=== PATIENT | female | born 1965 | race Caucasian/White ===

== ENCOUNTER 2017-05-21 19:41 | Inpatient (IN) | payer MEDICAID ==
[~2017-05-21] VITALS: Ht 157.5 cm; Wt 49.8 kg
[2017-05-21] MEDS ORDERED: ALBU8.5H3 INH (20:16)
[2017-05-21] MEDS ORDERED: MORPHINE SULFATE 4 MG/ML, 1ML ONE ×2 (21:14→22:44)
[2017-05-21] MEDS ORDERED: ONDANSETRON 2MG/ML, 2ML ONE (21:14)
[2017-05-21 21:21] LABS: BLOOD UREA NITROGEN 9 mg/dL (7-18)
[2017-05-21] MEDS ORDERED: SODIUM CHLORIDE FLUSH 10ML SYR IVF PRN (22:00)
[2017-05-21] MEDS ORDERED: D5%-0.45% NACL 1,000 ML IV SCH (22:00)
[2017-05-21] MEDS ORDERED: MORPHINE SULFATE 4 MG/ML, 1ML IVPush PRN (22:00)
[2017-05-21] MEDS ORDERED: ONDANSETRON 2MG/ML, 2ML IVPush PRN (22:00)
[2017-05-21 23:00] VITALS: BP 118/76
[2017-05-21] MEDS ORDERED: morphine SULFATE 10 MG/ML, 1ML IVPush ONE (23:00)
[2017-05-22 02:41] VITALS: BP 116/70
[2017-05-22 07:07] VITALS: BP 99/66
[2017-05-22] MEDS ORDERED: HYDROmorphone 1 MG/ML, 1ML ONE (08:51)
[2017-05-22] MEDS ORDERED: KETAMINE 10 MG/ML, 20ML ONE (08:51)
[2017-05-22] MEDS ORDERED: FENTANYL PF 250 MCG/5ML ONE (08:51)
[2017-05-22] MEDS ORDERED: GLYCOPYRROLATE 0.2MG/1ML ONE (09:04)
[2017-05-22] MEDS ORDERED: PROPOFOL 10 MG/ML, 20ML ONE (09:04)
[2017-05-22] MEDS ORDERED: LIDOCAINE 1%, 10ML ONE (09:04)
[2017-05-22] MEDS ORDERED: CEFAZOLIN 1,000 MG ONE (09:04)
[2017-05-22] MEDS ORDERED: DEXAMETHASONE 4 MG/ML, 1ML ONE (09:04)
[2017-05-22] MEDS ORDERED: ROCURONIUM 10 MG/ML ONE (09:04)
[2017-05-22] MEDS ORDERED: ONDANSETRON 2MG/ML, 2ML ONE (09:04)
[2017-05-22] MEDS ORDERED: NEOSTIGMINE 1 MG/ML, 10ML ONE (09:04)
[2017-05-22] MEDS ORDERED: METOCLOPRAMIDE 5 MG/ML, 2ML ONE (09:04)
[2017-05-22] MEDS ORDERED: OXYcodone 5 MG/5 ML ORAL.SOL UDC PO PRN (09:30)
[2017-05-22] MEDS ORDERED: LABETALOL 5MG/ML, 20ML IV PRN (09:30)
[2017-05-22] MEDS ORDERED: ONDANSETRON 2MG/ML, 2ML IVPush PRN (09:30)
[2017-05-22] MEDS ORDERED: hydrALAzine 20 MG/ML, 1ML IV PRN (09:30)
[2017-05-22] MEDS ORDERED: PROMETHAZINE 25 MG/ML, 1ML IV PRN (09:30)
[2017-05-22] MEDS ORDERED: MEPERIDINE/PF 25MG/0.5ML IVPush PRN (09:30)
[2017-05-22] MEDS ORDERED: HYDROmorphone 1 MG/ML, 1ML IV PRN (09:30)
[2017-05-22] MEDS ORDERED: MIDAZOLAM 1 MG/ML, 2ML IV PRN (09:30)
[2017-05-22] MEDS ORDERED: NEOSPORIN OINT, 15GM ONE (10:48)
[2017-05-22] MEDS ORDERED: HYDROmorphone 2 MG/ML, 1ML ONE (11:03)
[2017-05-22] MEDS ORDERED: FENTANYL PF 100 MCG/2ML ONE ×2 (11:03→11:13)
[2017-05-22] MEDS: FENTANYL PF 100 MCG/2ML IV PRN ×3 (11:05→11:44)
[2017-05-22] MEDS ORDERED: DIAZEPAM 5 MG/ML, 2ML ONE (11:21)
[2017-05-22] MEDS: DIAZEPAM 5 MG/ML, 2ML IV PRN ×2 (11:22→11:37)
[2017-05-22] MEDS ORDERED: ENOXAPARIN 40 MG/0.4 ML SQ SCH (11:30)
[2017-05-22] MEDS ORDERED: SENNA/DOCUSATE TABLET PO PRN (11:30)
[2017-05-22] MEDS ORDERED: BISACODYL 10 MG SUPP PR PRN (11:30)
[2017-05-22] MEDS ORDERED: CEFAZOLIN PMX 1GM/50ML 50 ML IVPB SCH (11:30)
[2017-05-22] MEDS ORDERED: MAGNESIUM HYDROXIDE 8%, 30ML UDC PO PRN (11:30)
[2017-05-22 12:31] VITALS: BP 105/70
[2017-05-22] MEDS: OXYcodone IR 5MG TABLET PO PRN ×2 (14:52→20:27)
[2017-05-22] MEDS: CEFAZOLIN PMX 1GM/50ML 50 ML IVPB SCH (18:33)
[2017-05-22 19:51] VITALS: BP 100/63
[2017-05-22] MEDS: DOCUSATE 100 MG CAPSULE PO SCH (21:00)
[2017-05-22] MEDS ORDERED: MORPHINE SULFATE 4 MG/ML, 1ML IVPush PRN (23:00)
[2017-05-22 23:47] VITALS: BP 105/59
[2017-05-23] MEDS: OXYcodone IR 5MG TABLET PO PRN ×4 (00:57→18:22)
[2017-05-23] MEDS: CEFAZOLIN PMX 1GM/50ML 50 ML IVPB SCH (02:07)
[2017-05-23 02:43] VITALS: BP 102/60
[2017-05-23 07:08] VITALS: BP 105/67
[2017-05-23] MEDS: ENOXAPARIN 40 MG/0.4 ML SQ SCH (07:46)
[2017-05-23] MEDS: DOCUSATE 100 MG CAPSULE PO SCH ×2 (08:10→21:00)
[2017-05-23] MEDS ORDERED: ONDANSETRON 2MG/ML, 2ML IVPush PRN (10:00)
[2017-05-23 15:02] VITALS: BP 89/53
[2017-05-23 15:34] VITALS: BP 96/52
[2017-05-23 20:02] VITALS: BP 90/51
[2017-05-24] MEDS: OXYcodone IR 5MG TABLET PO PRN ×4 (01:45→21:37)
[2017-05-24 04:29] VITALS: BP 93/56
[2017-05-24] MEDS: ENOXAPARIN 40 MG/0.4 ML SQ SCH (06:15)
[2017-05-24 06:57] VITALS: BP 89/52
[2017-05-24 08:48] VITALS: BP 91/49
[2017-05-24] MEDS: DOCUSATE 100 MG CAPSULE PO SCH ×2 (08:49→21:39)
[2017-05-24 12:47] VITALS: BP 92/55
[2017-05-24 19:25] VITALS: BP 90/56
[2017-05-25] MEDS: OXYcodone IR 5MG TABLET PO PRN ×4 (04:09→20:04)
[2017-05-25 04:11] VITALS: BP 90/53
[2017-05-25] MEDS: ENOXAPARIN 40 MG/0.4 ML SQ SCH (06:00)
[2017-05-25 07:37] VITALS: BP 100/65
[2017-05-25] MEDS: DOCUSATE 100 MG CAPSULE PO SCH ×2 (09:44→20:04)
[2017-05-25 13:37] VITALS: BP 94/58
[2017-05-25 19:13] VITALS: BP 93/58
[2017-05-26] MEDS: OXYcodone IR 5MG TABLET PO PRN ×2 (00:31→06:07)
[2017-05-26 04:45] VITALS: BP 99/62
[2017-05-26] MEDS: ENOXAPARIN 40 MG/0.4 ML SQ SCH (06:07)
[2017-05-26 08:25] VITALS: BP 95/58
[2017-05-26] MEDS: DOCUSATE 100 MG CAPSULE PO SCH (08:32)
[2017-05-26] MEDS ORDERED: OXYC5CAP4 PO (09:51)
[2017-05-26] MEDS ORDERED: DOCU-30 PO (09:52)
[2017-05-26] MEDS ORDERED: ASPI325T4 PO (09:52)
== END 2017-05-26 10:21 | disposition home or self-care (01) | DRG 481 ==
LOC: ED 22:01 → EDIP 22:16 → 4NOR 23:10 → DCLOUNGE 05-26 09:50
PROVIDERS: ADMIT Orthopaedic Surgery; ATTEND Orthopaedic Surgery
PROC: 0QS704Z Reposition Left Upper Femur with Internal Fixation Device, Open Approach (ICD-10-PCS; principal; 2017-05-22 09:00)
DX: S72.002A Fracture of unspecified part of neck of left femur, initial encounter for closed fracture (principal); M25.052 Hemarthrosis, left hip; D62 Acute posthemorrhagic anemia; J45.909 Unspecified asthma, uncomplicated; W18.30XA Fall on same level, unspecified, initial encounter; W18.39XA Other fall on same level, initial encounter; Z85.3 Personal history of malignant neoplasm of breast; Z88.2 Allergy status to sulfonamides; Z90.10 Acquired absence of unspecified breast and nipple; Y93.89 Activity, other specified; Y92.89 Other specified places as the place of occurrence of the external cause; Y99.8 Other external cause status
CPT/HCPCS: 36415; 71010; 72190; 76001; 80048; 82040; 84703; 85014; 85025; 88304; 93005; 99285; C1713; J0690; J1100; J1170; J1650; J2405; J2704; J2710; J3010; J3360; J3490; C1769; J2270; J2765

== ENCOUNTER → 2017-12-29 | Outpatient (CLI) | payer MEDICAID ==
[~2017-12-29] MED LIST: ALBU8.5H8 INH; ASPI325T17 PO; DOCU-131 PO; OXYC5CAP2 PO
== END ==
LOC: ROC 14:30
PROVIDERS: ATTEND Radiology Radiation Oncology
DX: Z08 Encounter for follow-up examination after completed treatment for malignant neoplasm (principal); D05.12 Intraductal carcinoma in situ of left breast
CPT/HCPCS: 99212; G0463